=== PATIENT | male | born 1990 | race Caucasian/White ===

== ENCOUNTER 2018-07-10 09:41 | Emergency (ER) | payer BC, SELFPAY ==
[2018-07-10 09:56] VITALS: O2SAT 98
[2018-07-10 10:14] LABS: BASOPHIL % 0.2 % (0.0-0.4); Basophil (Absolute #) 0.01 (0-0.4); Eosinophil % 2.1 % (0.00-5.0); Eosinophil (Absolute #) 0.13 (0-0.5); Granulocyte Absolute (ANC) 4.49 (1.4-6.9); Granulocytes % 71.8 % (36.0-66.0); Hematocrit 42.6 % (42-50); Hemoglobin 14.7 gm/dl (12.5-18.0); Lymphocyte (Absolute #) 0.87 (1.0-4.6); Lymphocytes % 13.9 % (24.0-44.0); Mean Cell Volume 93.6 fl (78-100); Mean Corpuscular Hemoglobin 32.3 pg (26-32); Mean Corpuscular Hgb Concent. 34.5 g/dl (32-36); Mean Platelet Volume 10.4 fl (6-9.5); Monocyte (Absolute #) 0.75 (0.0-1.3); Platelet Count 216 K/mm3 (150-450); Red Blood Count 4.55 M/mm3 (4.1-5.6); White Blood Count 6.3 K/mm3 (4.0-10.5)
--- NOTE | 2018-07-10 10:20 | XRAY ---
Indication: Fever and cough. Comparison: November 24, 2011. PA/lateral chest again demonstrates normal heart, lungs, and bony thorax.
[2018-07-10 10:33] LABS: ALBUMIN 4.4 g/dL (3.5-5.0); ALKALINE PHOSPHATASE 61 U/L (38-126); ANION GAP 14.5 MEQ/L (5-15); BLOOD UREA NITROGEN 3 mg/dL (9-20); CHLORIDE 104 mmol/L (98-107); Calcium 8.7 mg/dL (8.4-10.2); Carbon Dioxide 24 mmol/L (22-30); Glucose 142 mg/dL (74-106); Potassium 4.2 mmol/L (3.5-5.1); SGOT/AST 20 U/L (17-59); SGPT/ALT 17 U/L (0-50); SODIUM 139 mmol/L (137-145); Total Protein 7.2 g/dL (6.3-8.2)
[2018-07-10 10:48] LABS: Group A Strep NEGATIVE (NEGATIVE)
[2018-07-10] MEDS ORDERED: Tamiflu 75MG Capsule PO ONE ×2 (10:48→10:55)
[2018-07-10 10:50] LABS: INFLUENZA A POSITIVE (NEGATIVE); INFLUENZA B NEGATIVE (NEGATIVE); RESPIRATORY SYNCTIAL VIRUS NEGATIVE (Negative)
--- NOTE | 2018-07-10 10:54 | ERPHSYRPT ---
- History of Present Illness Source: patient Exam Limitations: no limitations Patient Subjective Stated Complaint: Pt states "I think I have either pneumonia or the flu. My ex has pneumonia and both my kids have the flu." Triage Nursing Assessment: Pt alert and oriented X 3, skin pwd. PT ambulates with an upright steady gait, able to speak in clear full sentences. PT in no apparent respiratory distress. pt congested. Physician History: Pt is a 28 y/o male that presented to the ED with URI. Pt states, his kids have Influenza A, and he has cough, fever of 101-102, nasal congestion, and myalgias. Pt denies N/V/D or abdominal pain. No SOB or wheeze. Timing/Duration: yesterday Cough Quality/Degree: moderate, dry cough Possible Cause: no prior episodes Modifying Factors: Improves With: coughing (gets so severe that can cause him to almost vomit.) Associated Symptoms: fever, cough, nasal congestion Allergies/Adverse Reactions: No Known Drug Allergies Allergy (Verified 07/10/18 09:56) Hx Tetanus, Diphtheria Vaccination/Date Given: No Hx Influenza Vaccination/Date Given: No Hx Pneumococcal Vaccination/Date Given: No Immunizations Up to Date: Yes - Review of Systems Constitutional: Fever, Chills, Malaise Eyes: No Symptoms Ears, Nose, & Throat: Nose Congestion Respiratory: Cough Cardiac: No Chest Pain, No Edema, No Syncope Abdominal/Gastrointestinal: No Abdominal Pain, No Nausea, No Vomiting, No Diarrhea Musculoskeletal: Myalgias, No Back Pain, No Neck Pain Neurological: No Dizziness, No Focal Weakness, No Sensory Changes - Past Medical History Pertinent Past Medical History: Yes Cardiac History: Hypertension - Past Surgical History Past Surgical History: Yes Musculoskeletal: Orthopedic Surgery Other Surgical History: LEFT ANKLE SURGERY - Social History Smoking Status: Former smoker How long have you smoked: 3 Exposure to second hand smoke: Yes Drug Use: none Patient Lives Alone: Yes Significant Family History: heart disease, hypertension - Nursing Vital Signs Nursing Vital Signs: Initial Vital Signs Temperature 101.3 F 07/10/18 09:52 Pulse Rate 68 07/10/18 09:52 Respiratory Rate 16 07/10/18 09:52 Blood Pressure 145/80 07/10/18 09:52 O2 Sat by Pulse Oximetry 98 07/10/18 09:52 Pain Scale Pain Intensity 3 - Physical Exam General Appearance: mild distress Eye Exam: PERRL/EOMI, eyes nml inspection Ears, Nose, Throat Exam: normal ENT inspection, TMs normal, pharynx normal, moist mucous membranes Neck Exam: normal inspection, non-tender, supple, full range of motion Respiratory Exam: normal breath sounds, lungs clear, No respiratory distress Cardiovascular Exam: regular rate/rhythm, normal heart sounds Gastrointestinal/Abdomen Exam: soft, No tenderness Back Exam: normal inspection, No CVA tenderness, No vertebral tenderness Extremity Exam: normal inspection, normal range of motion Neurologic Exam: alert, oriented x 3, cooperative, normal mood/affect, sensation nml, No motor deficits SpO2 Interpretation: normal SpO2: 98 O2 Delivery: Room Air - Course Nursing assessment & vital signs reviewed: Yes - Radiology Exams Chest X-ray Interpretation: Reviewed by me, Negative Ordered Tests: Active Orders 24 hr Category Date Time Status CHEST 2 VIEWS (PA AND LAT) Stat Exams 07/10/18 10:14 Completed CBC W DIFF Stat Lab 07/10/18 10:10 Completed CMP Stat Lab 07/10/18 10:10 Completed Medication Summary Generic Name Dose Route Start Last Admin Trade Name Freq PRN Reason Stop Dose Admin Oseltamivir Phosphate 75 mg 07/10/18 10:48 Tamiflu 75mg Capsule PO 07/10/18 10:49 STAT ONE Lab/Rad Data: Laboratory Result Diagrams 07/10/18 10:10 07/10/18 10:10 Laboratory Results 07/10/18 07/10/18 Range/Units 10:10 10:10 WBC 6.3 (4.0-10.5) K/mm3 RBC 4.55 (4.1-5.6) M/mm3 Hgb 14.7 (12.5-18.0) gm/dl Hct 42.6 (42-50) % MCV 93.6 (78-100) fl MCH 32.3 H (26-32) pg MCHC 34.5 (32-36) g/dl RDW 12.0 (11.5-14.0) % Plt Count 216 (150-450) K/mm3 MPV 10.4 H (6-9.5) fl Gran % 71.8 H (36.0-66.0) % Eos # (Auto) 0.13 (0-0.5) Absolute Lymphs (auto) 0.87 L (1.0-4.6) Absolute Monos (auto) 0.75 (0.0-1.3) Lymphocytes % 13.9 L (24.0-44.0) % Monocytes % 12.0 (0.0-12.0) % Eosinophils % 2.1 (0.00-5.0) % Basophils % 0.2 (0.0-0.4) % Absolute Granulocytes 4.49 (1.4-6.9) Basophils # 0.01 (0-0.4) Sodium 139 (137-145) mmol/L Potassium 4.2 (3.5-5.1) mmol/L Chloride 104 (98-107) mmol/L Carbon Dioxide 24 (22-30) mmol/L Anion Gap 14.5 (5-15) MEQ/L BUN 3 L (9-20) mg/dL Creatinine 0.70 (0.66-1.25) mg/dL Estimated GFR > 60.0 ML/MIN Glucose 142 H (74-106) mg/dL Calcium 8.7 (8.4-10.2) mg/dL Total Bilirubin 0.30 (0.2-1.3) mg/dL AST 20 (17-59) U/L ALT 17 (0-50) U/L Alkaline Phosphatase 61 (38-126) U/L Serum Total Protein 7.2 (6.3-8.2) g/dL Albumin 4.4 (3.5-5.0) g/dL - Progress Progress: unchanged Air Movement: good Progress Note: 07/10/18 10:54 Pt had labs and CXR that were negative. Respiratory panel was positive for Influenza A. Tamiflu 75mg was given once in the ED. Will see patient in: office Counseled pt/family regarding: need for follow-up - Departure Time of Disposition: 10:55 Departure Disposition: Home Clinical Impression: Influenza A Condition: Stable Critical Care Time: No Additional Instructions: Pt should finish Tamiflu. Can use OTC meds, for symptoms relief. F/U with PCP. Forms: Providers Accepting New PT'S Prescriptions: Oseltamivir 75 mg [Tamiflu 75MG Capsule] 75 mg PO BID #10 cap
[2018-07-10 11:00] VITALS: BP 141/79; PULSE 73
== END 2018-07-10 11:08 | disposition home or self-care (01) ==
LOC: ED 09:41
DX: J10.1 Influenza due to other identified influenza virus with other respiratory manifestations (principal)
CPT/HCPCS: 36415; 71046; 80053; 85025; 87631; 87651; 99283; A9270-GY